=== PATIENT | female | born 1965 | race Two or more races ===

== ENCOUNTER 2020-07-10 11:04 | Outpatient (CLI) | payer OTHER | END 2020-07-10 11:19 | disposition home or self-care (01) | LOC: SONOGRAMA 11:04 | PROVIDERS: ATTEND Pathology Anatomic Pathology & Clinical Pathology | DX: D34 Benign neoplasm of thyroid gland (principal); E04.2 Nontoxic multinodular goiter; E06.5 Other chronic thyroiditis; E04.8 Other specified nontoxic goiter ==